=== PATIENT | female | born 1985 | race Hispanic/Latino ===

== ENCOUNTER 2018-12-07 08:04 | Outpatient (CLI) | payer OTHER | END 2018-12-07 08:05 | LOC: MADLABBHPM 08:04 | PROVIDERS: ATTEND Family Medicine | DX: O09.893 Supervision of other high risk pregnancies, third trimester (principal) | CPT/HCPCS: 36415; 82951; 82952 ==

== ENCOUNTER 2019-02-19 08:30 | Outpatient (CLI) | payer OTHER ==
--- NOTE | 2019-02-19 09:02 | ULT ---
Gallbladder ultrasound: Multiple grayscale images of right upper quadrant obtained according to protocol. INDICATION: Pain FINDINGS: Liver: No focal lesion Gallbladder: Shadowing cholelithiasis Gallbladder wall: Mild thickening of gallbladder wall, measuring slightly greater than 3 mm. Ratliff's Sign: Positive. Common bile duct is normal. Ascites: None IMPRESSION: Cholelithiasis with wall thickening and positive Ratliff sign. Recommend surgical consultation, as miladis ging findings are concerning for associated cholecystitis.
== END 2019-02-19 08:31 | disposition home or self-care (01) ==
LOC: MADULT 08:30
PROVIDERS: ATTEND Family Medicine
DX: R10.11 Right upper quadrant pain (principal); R94.5 Abnormal results of liver function studies; K80.20 Calculus of gallbladder without cholecystitis without obstruction; K82.8 Other specified diseases of gallbladder
CPT/HCPCS: 76705